=== PATIENT | female | born 1955 | race Two or more races ===

== ENCOUNTER 2020-10-19 10:14 | Outpatient (CLI) | payer OTHER | END 2020-10-19 10:23 | disposition home or self-care (01) | LOC: SONOGRAMA 10:14 | PROVIDERS: ATTEND Pathology Anatomic Pathology & Clinical Pathology | DX: E04.8 Other specified nontoxic goiter (principal); D34 Benign neoplasm of thyroid gland; E06.3 Autoimmune thyroiditis ==